=== PATIENT | male | born 1990 | race Caucasian/White ===

== ENCOUNTER 2016-10-30 07:31 | Day surgery (SDC) | payer OTHER ==
[~2016-10-30] VITALS: Ht 185.4 cm; Wt 124.7 kg
--- NOTE | ~2016-10-30 | OP ---
Record Of Operation [facility] [address] [place]. [address] NAME: GABRIELE CLARK : 89 STATUS : [facility]#: [id number] AGE: 26 ADM/REG DATE : 10/30/16 MR#: [id number] REPORT SERV DATE: 10/30/16 DICTATED BY: AMILCAR LEBLANC DATE: 10/30/16 REPORT STATUS : Draft TRANSCRIBED BY: MODNicole DATE: 10/30/16 DATE OF PROCEDURE: 10/30/2016 PREOPERATIVE DIAGNOSES: 1. Painful incarcerated right inguinal hernia. 2. History of nephrectomy for renal cell cancer. 3. Obesity. POSTOPERATIVE DIAGNOSES: 1. Painful incarcerated right inguinal hernia. 2. History of nephrectomy for renal cell cancer. 3. Obesity. PROCEDURE: Open tension-free incarcerated indirect right inguinal hernia repair with mesh. ANESTHESIA: General. [employer]: Mona. COMPLICATIONS: None. DRAINS: None. ESTIMATED BLOOD LOSS: 20 mL. FINDINGS: The patient is noted to have a large incarcerated right indirect inguinal hernia. OPERATIVE TECHNIQUE: The patient was brought to the operating room, placed on the table in supine position. He had preoperative IV antibiotics. He had sequential hose in place. He voided prior to the procedure. He underwent general endotracheal anesthesia, and was prepped and draped in sterile fashion. A time-out was completed. Local anesthesia was instilled to the right inguinal incision site two fingerbreadths above the pubic tubercle in the right side. The incision was made from this point toward the anterior iliac spine in a skin crease. The incision was carried down to the anterior fascia. The anterior fascia was then divided in the direction of the fibers through the superficial ring. Blunt dissection ensued until the anterior and posterior flaps were created, and the internal oblique aponeurosis, pubic tubercle, iliopubic tract, and the shelving edge were clearly identified using blunt dissection. The cord was then encircled using blunt dissection at the pubic tubercle and elevated with a Stedman drain. The cord was then addressed and carefully dissected until the indirect inguinal hernia sac was identified. It was carefully dissected away from the cord structures using blunt dissection and electrocautery until it was reduced all the way to the level of the deep ring. The vas and neurovascular structures of the cord were preserved and identified throughout the procedure. At this point, the indirect inguinal hernia sac was reduced en tristin, and there was no evidence of any other hernias. The mesh was placed in the pelvic floor, it was ProGrip mesh, it was secured with the anterior strap closing the deep ring without tension. The mesh was placed underneath the Record Of Operation [facility] [address] [place]. [address] NAME: GABRIELE CLARK : 89 STATUS : [facility]#: [id number] AGE: 26 ADM/REG DATE : 10/30/16 MR#: [id number] REPORT SERV DATE: 10/30/16 DICTATED BY: AMILCAR LEBLANC DATE: 10/30/16 REPORT STATUS : Draft TRANSCRIBED BY: WILIAN DATE: 10/30/16 external oblique aponeurosis and covered the entire myopectineal floor. The mesh was secured at pubic tubercle with 2-0 Prolene suture and secured from medial to lateral along the iliopubic tract with a running suture inferiorly. The keyhole that was reapproximated with the ProGrip technology was secured as well with a [id number] 2-0 Prolene suture to re-ensure the keyhole remained closed. The wound was then thoroughly irrigated. Hemostasis was noted. The anterior fascia was reapproximated using a running 2-0 Vicryl suture. The subcutaneous tissues were reapproximated using a running 3-0 Vicryl suture. The skin edges were reapproximated using running subcuticular Monocryl suture. Dermabond was applied and he was extubated, and taken to the recovery room in stable condition. All sponge and needle counts reported correct. SANAM/WILIAN ilcar Leblanc M.D. / [id number] CC: Charissa Irving MD
[~2016-10-30 07:31] MED LIST: NEUR600 PO; NORCO1 TAB PO; PERCOCET 10/3251 TAB PO; PROTONIX PO; ZOFRAN4 PO
== END 2016-10-30 13:53 | disposition home or self-care (01) ==
LOC: SDC 07:31
PROVIDERS: Surgery
PROC: 0YU50JZ Supplement Right Inguinal Region with Synthetic Substitute, Open Approach (ICD-10-PCS; principal; 2016-10-30 08:45)
DX: K40.30 Unilateral inguinal hernia, with obstruction, without gangrene, not specified as recurrent (principal); E66.01 Morbid (severe) obesity due to excess calories; K21.9 Gastro-esophageal reflux disease without esophagitis; Z68.36 Body mass index [BMI] 36.0-36.9, adult; Z90.5 Acquired absence of kidney; Z85.528 Personal history of other malignant neoplasm of kidney; Z79.899 Other long term (current) drug therapy; Z87.891 Personal history of nicotine dependence
CPT/HCPCS: A9270-GY; C1781; J0690; J1170; J2175; J2250; J2405; J2550; J2710; J3010